=== PATIENT | female | born 1960 | race Caucasian/White ===

== ENCOUNTER 2017-10-06 07:04 | Day surgery (SDC) | payer BC ==
[2017-10-06] MEDS ORDERED: ceFAZolin 1 gm in NS 0 GM/0 ML BAG IVPB ONE (09:27)
[2017-10-06] MEDS ORDERED: Lidocaine Hydrochloride 10 ML INJ ONE (09:27)
[2017-10-06] MEDS ORDERED: Bupivacaine HCl 0.25% PF (30 ml) Inj ONE (09:28)
--- NOTE | 2017-10-06 10:17 | PCM.SURG1 ---
Surgeon's Initial Post Op Note - Surgeon's Notes Surgeon: Dr. Soto Metaphysicist: PGY1 Type of Anesthesia: Local Pre-Operative Diagnosis: Right elblow sebaceous cyst Operative Findings: cyst, capsule intact; for details see op note Post-Operative Diagnosis: as above Operation Performed: excision of sebaceous cyst Specimen/Specimens Removed: Cyst of Right elbow Estimated Blood Loss: EBL {In ML}: 5 Drains Used: No Drains Post-Op Condition: Good Date of Surgery/Procedure: 10/06/17 Time of Surgery/Procedure: 10:19
[2017-10-06] MEDS ORDERED: Oxycodone/Acetaminophen 5/325 mg Tab PO ONE (10:20)
[2017-10-06 11:03] VITALS: BP 135/81; PULSE 62; RESP 15; TEMP 98; O2SAT 100
--- NOTE | 2017-10-06 20:39 | OP ---
PROCEDURE DATE: 10/06/2017 PREOPERATIVE DIAGNOSIS: Olecranon bursa, right elbow. POSTOPERATIVE DIAGNOSIS: Olecranon bursa, right elbow. PROCEDURE: Excision of olecranon bursa, right elbow. SURGEON: Donell Soto Jr., MD ASSISTANTS: None. TYPE OF ANESTHESIA: Xylocaine 1%. ANESTHESIA ADMINISTERED BY: Myself. INDICATIONS: The patient is a middle-aged woman with extensive orthopedic history, who presents with painful lump over the olecranon. OPERATIVE FINDINGS: This was consistent with a ganglion-type cyst. It was completely excised. After excision of it, it was closed with fine single-layer nylon sutures. DESCRIPTION OF PROCEDURE: The patient was given local anesthesia by infiltration after the skin had been carefully prepped and draped. An incision was made in a transverse fashion directly over it. The lump was removed intact. After hemostasis was obtained, the wound was closed with sutures and a mild compressive dressing applied. Blood loss for the procedure was 10 mL. Operation carried out is excision of the olecranon bursa, right elbow. Donell Soto Jr., MD
== END 2017-10-06 10:40 | disposition home or self-care (01) ==
LOC: C.SDS 07:04
PROVIDERS: ATTEND Surgery Vascular Surgery
DX: M67.421 Ganglion, right elbow (principal); L72.0 Epidermal cyst